=== PATIENT | female | born 1990 | race African-American/Black ===

== ENCOUNTER 2021-05-26 18:03 | Emergency (ER) | payer OTHER ==
[~2021-05-26] VITALS: Ht 160 cm; Wt 95.3 kg
[~2021-05-26 18:03] MED LIST: APAP500; COLACE 100 MG100 MG PO; DERMOPLAST SPRA56 ML; HYDROCORTISONE30 G9; IBUPROFEN 800800 M1 PO; IRON325 PO; LANOLIN56 GM; PHENERGAN 25 MG25 M1 PO; PRENATAL; TUCKS MEDICATE1 EAC1; ZANTAC150 M2 PO
[2021-05-26] MEDS ORDERED: NORVASC10 MG PO (18:35)
[2021-05-26] MEDS ORDERED: HYDROCHLOROTHIA25 M1 PO (18:35)
[2021-05-26 18:37] LABS: ABSOLUTE NEUTROPHILS 4.1 thou/uL (1.4-8.2); BASOPHILS 0.3 % (0.0-2.0); HEMATOCRIT 41.3 % (37.0-47.0); HEMOGLOBIN 13.6 gm/dL (12.0-15.0); LYMPHOCYTES 8.4 % (24.0-44.0); MCH 29.5 pg (26.0-34.0); MCHC 32.9 g/dL (28.0-37.0); MCV 89.4 fL (80.0-100.0); MONOCYTES 3.7 % (1.0-8.0); PLATELET COUNT 245 thou/uL (150-400); POLYS 87.6 % (36.0-66.0); RBC 4.62 mil/uL (4.20-5.00); RDW 14.3 % (10.5-14.5); WBC 4.7 thou/uL (4.0-11.0)
[2021-05-26 20:36] LABS: ALBUMIN 3.8 g/dL (3.4-5.0); ANION GAP 10 mmol/L (7-16); BUN 9 mg/dL (7-18); CALCIUM 9.4 mg/dL (8.5-10.1); CHLORIDE 103 mmol/L (98-107); CO2 26 mmol/L (21-32); CREATININE 0.9 mg/dL (0.6-1.0); GLUCOSE 128 mg/dL (74-106); SGOT 19 U/L (15-37); SGPT 21 U/L (14-59); SODIUM 139 mmol/L (136-145); TOTAL BILIRUBIN 0.2 mg/dL (0.2-1.0); TOTAL PROTEIN 7.9 g/dL (6.4-8.2); TROPONIN-I <0.06 ng/mL (<0.06)
[2021-05-26] MEDS ORDERED: PREDNISONE 10 M10 M1 PO (20:48)
[2021-05-26] MEDS ORDERED: HYDROCHLOROTHIA50 MG PO (20:48)
[2021-05-26 21:16] VITALS: BP 171/106
--- NOTE | 2021-05-27 07:17 | EKG ---
[address] [address] [facility] [place] [address] ELECTROCARDIOGRAM REPORT Name: LASHANDA JANSEN Room #: DEP [facility]#: [id number] Admission: 05/26/21 Attend Phys: Discharge: 05/26/21 Date of : [birth year] Report #: [id number] [facility] ED Test Date: 2021-05-26 Test Time: 18:20:56 Pat Name: LASHANDA JANSEN Department: Room: Gender: F [employer] Journalist: : 1990 Requested By: Thomas Maria Order Number: [id number] MD: Addison Qureshi Measurements Intervals [place] Rate: 122 P: 49 MS: 152 QRS: 15 QRSD: 85 T: -37 QT: 316 QTc: 451 Interpretive Statements Sinus tachycardia Ventricular premature complex Aberrant complex Probable left atrial enlargement Probable left ventricular hypertrophy Nonspecific T abnormalities, diffuse leads No previous ECG available for comparison Electronically Signed On 05-27-2021 7:16:54 CDT by Addison Qureshi [email or web address] <ELECTRONICALLY SIGNED> By: Addison Qureshi MD, [facility] 05/27/21 0716 182 19 Addison Qureshi MD, FACC /EPI
== END 2021-05-26 21:17 | disposition home or self-care (01) ==
LOC: ER 18:03
PROVIDERS: Emergency Medicine
DX: J06.9 Acute upper respiratory infection, unspecified (principal); R05 Cough; I10 Essential (primary) hypertension; J45.909 Unspecified asthma, uncomplicated; Z79.1 Long term (current) use of non-steroidal anti-inflammatories (NSAID); Z79.891 Long term (current) use of opiate analgesic; Z79.899 Other long term (current) drug therapy; Z91.040 Latex allergy status; Z20.822 Contact with and (suspected) exposure to COVID-19